=== PATIENT | male | born 2000 | race Caucasian/White ===

== ENCOUNTER 2018-05-28 11:17 | Emergency (ER) | payer SELFPAY ==
[2018-05-28 11:17] VITALS: BP 132/82; PULSE 78; RESP 18; TEMP 36.6; O2SAT 96; BMI 41.1
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
--- NOTE | 2018-05-28 11:49 | ED.DEP ---
ED Disposition - Plan for ED Patient: Disposition: Home or Assisted Living Chief Complaint: Headache Instructions: ED Concussion Referrals: Abhi De Jesus DO [Primary Care Provider] -
== END 2018-05-28 12:18 | disposition home or self-care (01) ==
LOC: ED 12:09
PROVIDERS: Emergency Provider Emergency Medicine; Family Provider Pediatrics; PCP Pediatrics
DX: S06.0X0A Concussion without loss of consciousness, initial encounter (principal); V89.2XXA Person injured in unspecified motor-vehicle accident, traffic, initial encounter
CPT/HCPCS: 99282

== ENCOUNTER 2023-11-05 10:08 | Emergency (ER) | payer SELFPAY ==
[2023-11-05 10:08] VITALS: BP 143/95; PULSE 92; RESP 18; TEMP 36.1; O2SAT 97; BMI 44.6
--- NOTE | 2023-11-05 10:28 | EDS_ITS ---
HPI History of Present Illness Chief Complaint: Abd Pain PFSH PFSH Medical History no medical history Home Medications naproxen 500 mg tablet 500 mg PO BID PRN #20 tabs 12/02/14 [Rx Last Taken Unknown] oxycodone-acetaminophen 5 mg-325 mg tablet 1 - 2 tab PO Q4H PRN PRN Pain #20 tabs 12/02/14 [Rx Last Taken Unknown] ondansetron 4 mg disintegrating tablet 4 mg PO Q8H PRN PRN Nausea #10 tabs 11/05/23 [Rx Last Taken Unknown] Allergy/AdvReac Type Severity Reaction Status Date / Time No Known Allergies Allergy Verified 11/05/23 10:10 Surgical History no surgical history Social History Smoking Status: Never smoker EXAM Physical Exam Const Vital Signs: 11/05/23 10:08 11/05/23 12:09 Temperature 96.9 F L 98.3 F Temperature Source Temporal Pulse Rate 92 78 Respiratory Rate 18 14 Blood Pressure 143/95 H 117/72 Blood Pressure Mean 111 87 Pulse Ox 97 97 Oxygen Delivery Method Room Air MDM MDM MDM Narrative Medical decision making narrative: HISTORY OF PRESENT ILLNESS: 23year old male presents with abdominal pain. Patient notes 2 days of epigastric abdominal pain nausea vomiting. Notes he had a cookout this weekend. States he consumed alcohol at the cookout. Denies any other friends or associates with si milar symptoms. Denies any hematemesis, melena or hematochezia. Denies history abdominal surgeries. Denies history of pancreatitis or gallstones. Notes diarrhea. Notes several episodes of nausea and vomiting as well. Denies any vomiting today. Localizes the pain to the epigastrium. Does not radiate to the back. He is on the right upper quadrant and right lower quadrant. REVIEW OF SYSTEMS: All other systems reviewed and are negative except as noted in the history of present illness. At least 10 review of systems reviewed and are negative except as noted in history of present illness. PHYSICAL EXAM: Nursing triage notes reviewed, Vital signs reviewed Constitutional: please see mdm HENT: MMM Eyes: Pupils equal round and reactive to light, Extraocular muscles intact Neck: No stridor, no JVD, full neck ROM Lungs: Clear to auscultation, No wheezing or rales. No increased work of breathing, no conversational dyspnea, no accessory muscle use, no nasal flaring. No respiratory distress noted Heart: Regular rate and rhythm, No murmurs, No rubs and No gallops, 2+ distal pulses (radial, femoral, posterior tibial) in all extremities Abdomen: Soft, no rigidity, rebound or guarding, no obvious peritoneal signs, no palpable pulsatile abdominal masses, no auscultated abdominal bruit : No CVAT Extremities: No edema Neuro: No focal neurological deficits, cranial nerves II through XII intact, 5/5 strength in all extremities. Intact sensation to light touch in all extremities, 2+ reflexes bilateral patella tendons. Normal gait. No ataxia. Skin: No rash or lesions noted MEDICAL DECISION MAKING: Chief Complaint: abdominal pain External records reviewed: No recent advanced imaging of the abdomen pelvis noted Factors affecting care: none Social determinants of health: No drinking problems approximate alcoholic beverages over the weekend History obtained from others: none Consults: none MDM Narrative: Patient was hemodynamically stable, afebrile, nontoxic-appearing. Abdominal exam benign. I considered the following differential diagnosis: Gastritis,AAA, small bowel obstruction, abdominal perforation, appendicitis, pancreatitis, hepatobiliary pathology (acute cholecystitis), mesenteric ischemia, abnormalities such as pyelonephritis, nephrolithiasis I obtained a broad lab workup to further elucidate etiologies and screen for more severe life-threatening processes such as bowel obstruction, perforation acute appendicitis etc. I treated the patient medically 1 L normal saline, Zofran, Pepcid and Toradol. ALL IMAGES (IF OBTAINED) HAVE BEEN PERSONALLY REVIEWED AND INTERPRETED BY MYSELF. CBC without leukocytosis, severe anemia, no thrombocytopenia. BMP without evidence of significant electrolyte abnormalities, no anion gap, no acute kidney injury. LFTs show no evidence of hepatobiliary pathology. Lipase is wnl indicating no pancreatic inflammation. I see nothing that would suggest an acute abdomen at this time. Based on history physical exam, risk factors, I have a low suspicion for bowel obstruction, incarcerated hernia, acute pancreatitis, intra-abdominal abscess, perforated viscus, diverticulitis, cholecystitis, appendicitis is very low. There is no evidence of peritonitis sepsis or toxicity at this time. I feel the patient can be managed as an outpatient with follow-up with her primary physician in the next 24 to 48 hours or soon as possible. Instructions have been given for the patient to return to the ED for worsening pain, anorexia, high fevers, intractable vomiting or bleeding. The patient and/or family, caregivers express understanding. The patient and/or family, caregivers agrees with the plan. Total critical care time today provided was at least 0 minutes. This excludes separately billable procedures. Critical care time (if documented) is secondary to the patient having high probability of clinically significant/life threatening deterioration in the patient's condition which required my urgent intervention. Shared decision making: I will have a discussion with the patient and or visitors regarding risk/benefits of further testing or admission. They will be made aware of of the risk/benefits inherent in this decision they will be given the opportunity to voice understanding. Impression: 1. EpiGastric abdominal pain Disposition: Discharge home Barron Cottrell DO Lab Data Labs: Laboratory Results - last 24 hr 11/05/23 10:45 WBC 8.1 RBC 5.82 Hgb 16.9 H Hct 47.6 MCV 81.8 MCH 29.0 MCHC 35.5 RDW Std Deviation 38.3 RDW Coeff of Magy 12.9 Plt Count 209 MPV 12.0 Immature Gran % (Auto) 0.400 Neut % (Auto) 74.3 H Lymph % (Auto) 15.0 L [place] % (Auto) 8.4 Eos % (Auto) 1.7 Baso % (Auto) 0.2 Absolute Neuts (auto) 6.0 Absolute Lymphs (auto) 1.22 Nucleated RBC % 0 Sodium 136 Potassium 3.9 Chloride 106 Carbon Dioxide 24.0 Anion Gap 6 BUN 16 Creatinine 0.88 Estim Creat Clear Calc 177.96 Est GFR (MDRD) Af Amer 135 Est GFR (MDRD) Non-Af 111 BUN/Creatinine Ratio 18.1 Glucose 103 Calcium 9.0 Total Bilirubin 0.70 AST 23 ALT 54 Alkaline Phosphatase 81 Total Protein 7.6 Albumin 4.0 Globulin 3.6 Albumin/Globulin Ratio 1.1 Lipase 18 Discharge Plan Triage Chief Complaint: Abd Pain ED Provider: Barron Cottrell Dx/Rx/DC Orders Instructions: ED Abdominal Pain Unkn Cause Male... Prescriptions: New ondansetron 4 mg tablet,disintegrating 4 mg PO Q8H PRN PRN (Reason: Nausea) Qty: 10 0RF No Action oxycodone-acetaminophen 1 TABLET tablet 1 - 2 tab PO Q4H PRN PRN (Reason: Pain) Qty: 20 0RF naproxen 500 MG tablet 500 mg PO BID PRN Qty: 20 0RF Stand Alone Forms: ED Work / School Excuse Primary Care Provider: Care Physician,No Primary Referrals: Lisa Young MD [Med Staff - Data Steward] - Activity Restrictions/Additional Instructions: Thank you for trusting us with your care today! You are likely suffering from a GI bug or inflammation of your stomach. Please go to local pharmacy or drugstore to obtain and begin taking omeprazole (also known as Prilosec) daily. This will help with GI upset. Please take Tylenol (2 pills, 650 mg), ibuprofen (2 pills, 400 mg) every 6 hours as needed for pain and fever control. Please control your alcohol intake. Usually to drink 2 drink equivalents per day that is 2 12 ounce beers or two 2 ounce drinks of liquor. Please take Zofran as needed for nausea and vomiting. Please return to the emergency department if your symptoms change or worsen. Please follow with your primary care physician for further outpatient evaluation and management. Disposition Disposition: Home, Self Care Discharge Date/Time: 11/05/23 12:26
[2023-11-05 10:56] LABS: Absolute Lymphocyte Count 1.22 X10^3/uL (0.83-4.51); Basophil# 0.02 X10^3/uL; Basophil% 0.2 % (0-1); Eosinophil# 0.14 X10^3/uL; Eosinophils% 1.7 % (0-5); Hematocrit 47.6 % (40-54); Hemoglobin 16.9 g/dL (13.0-16.5); Lymphocyte # 1.22 X10^3/ul (0.83-4.51); Mean Corp Hgb Conc 35.5 g/dL (32-36); Mean Corpuscular Volume 81.8 fL (80-94); Monocyte# 0.68 X10^3/uL; Monocyte% 8.4 % (0-10); NRBC Flagged by Analyzer 0 % (0-5); Neutrophil # 6.02 X10^3/uL (2.7-7.7); Neutrophil % 74.3 % (47-70); Platelet Count 209 K/mm3 (150-450); RBC Distribution Width CV 12.9 % (11.6-14.6); RBC Distribution Width SD 38.3 fl (35.1-43.9); Red Blood Count 5.82 M/mm3 (4.6-6.2); White Blood Count 8.1 K/mm3 (4.4-11.0)
[2023-11-05 11:09] LABS: ALB/GLOB Ratio 1.1 RATIO (0.9-2.4); AST(SGOT) 23 U/L (15-37); Alanine Aminotransfer ALT/SGPT 54 U/L (16-61); Alkaline Phosphatase 81 U/L (45-117); Anion Gap 6 (5-15); BUN 16 mg/dL (7-18); BUN/Creat Ratio 18.1 RATIO (10-20); Chloride 106 mmol/L (98-107); Creatinine, Serum 0.88 mg/dL (0.70-1.30); EST Glomerular Filtration Rate 111 mL/min (>60); Est Glom Filt Rate - Afr Amer 135 mL/min (>60); Estimated Creatinine Clearance 177.96 ml/min; Globulin 3.6 g/dL (2.2-4.2); Glucose 103 mg/dL (74-106); Lipase 18 U/L (13-75); Potassium 3.9 mmol/L (3.5-5.1); Protein, Total 7.6 g/dL (6.4-8.2); Sodium Level 136 mmol/L (136-145)
[2023-11-05] MEDS: Ondansetron 4 MG/2 ML Vial IV (11:10)
[2023-11-05] MEDS: Ketorolac 15 MG/ML Vial IV (11:10)
[2023-11-05] MEDS: Famotidine 200 MG/20 ML MDV 20 MG in 0.9% Normal Saline (Pres. free 8 ML 300 MG IV (11:10)
[2023-11-05] MEDS: 0.9% Normal Saline (1000mL) 1,000 ML 1000 ML IV (11:10)
[2023-11-05 12:09] VITALS: BP 117/72; PULSE 78; RESP 14; TEMP 36.8; O2SAT 97
== END 2023-11-05 12:26 | disposition home or self-care (01) ==
PROVIDERS: Emergency Provider Emergency Medicine; Visit Provider Emergency Medicine
DX: R10.13 Epigastric pain (principal); R11.2 Nausea with vomiting, unspecified; R19.7 Diarrhea, unspecified
CPT/HCPCS: 80053; 83690; 85025; 96365; 96375; 99282; J7030; A4216; J2405; J3490